=== PATIENT | female | born 1940 | race Caucasian/White ===

== ENCOUNTER 2020-07-25 11:52 | Outpatient (CLI) | payer MEDICARE, SELFPAY ==
--- NOTE | ~2020-07-25 | XR_ITS ---
EXAMINATION: XR chest 2V DATE: 07/25/2020 12:12 INDICATION: Cough. TECHNIQUE: Frontal and lateral views of the chest were obtained. COMPARISON: Chest 2 views 04/20/2016 FINDINGS: There is mild atelectasis at the lung bases. No pleural effusion or pneumothorax. The heart size is normal. IMPRESSION: 1. Mild atelectasis at the lung bases. Reviewed, dictated and finalized at location A.
--- NOTE | ~2020-07-25 | XR_ITS ---
XR ankle LT min 3V DATE: 07/25/2020 12:12 INDICATION: Left ankle pain, foot pain TECHNIQUE: 4 views COMPARISON: 07/25/2020 left ankle FINDINGS: Prominent plantar calcaneal enthesopathy. There is osteoarthritic change at the ankle joint and tarsal and tarsometatarsal joints. No fracture, dislocation, periosteal reaction or bone destruction. IMPRESSION: Plantar calcaneal enthesopathy Osteoarthritis Reviewed, dictated and finalized at location A.
== END 2020-07-25 11:53 | disposition home or self-care (01) ==
PROVIDERS: PCP Family Medicine; Visit Provider Family Medicine
DX: M77.32 Calcaneal spur, left foot (principal); M19.072 Primary osteoarthritis, left ankle and foot; R91.8 Other nonspecific abnormal finding of lung field
CPT/HCPCS: 71046; 73610

== ENCOUNTER 2022-10-09 14:10 | Outpatient (CLI) | payer MEDICARE, SELFPAY ==
--- NOTE | ~2022-10-09 | XR_ITS ---
Clinical Indication: Acute bronchitis PA and lateral views of the chest: Comparison: 07/25/2020 Findings: The lungs are clear, without evidence of focal consolidation or pleural effusion. Cardiome diastinal silhouette is within normal limits. Bones and soft tissues are unremarkable. Impression: Normal chest. Reviewed, dictated and finalized at location . Impression: Normal chest.
== END 2022-10-09 14:11 | disposition home or self-care (01) ==
PROVIDERS: PCP Family Medicine; Visit Provider Physician Assistant Medical
DX: J20.9 Acute bronchitis, unspecified (principal)
CPT/HCPCS: 71046

== ENCOUNTER 2023-01-02 12:08 | Outpatient (CLI) | payer MEDICARE, SELFPAY ==
--- NOTE | 2023-01-02 13:56 | WPDPFTINT ---
PFT Procedure Performed PFT Procedure Performed Spirometry with Pre/Post Bronchodilator Plethysmography (Lung Vol) Diffusing Cap (DLCO) Flow Vol Loop PFT Interpretation This is a pulmonary function test with pre and post-bronchodilator spirometry, plethysmography and diffusing capacity. The test was performed and results interpreted in accordance with the 2019 and 2005 ATS/ERS Task Force guidelines respectively using the Global Lung Function Initiative-2012 reference equations. Patient demonstrated good effort and cooperation. Reproducibility criteria were met. The quality of the pre bronchodilator spirometry maneuver was Grade A and post bronchodilator spirometry maneuver was Grade A. Findings: Spirometry: The contour the inspiratory and expiratory flow tracing are normal. The pre bronchodilator FVC is 2.25 L, 106% predicted. The pre bronchodilator FEV1 is 1.59 L, 98% predicted. The pre bronchodilator FEV1: FVC ratio 71%. The post bronchodilator FVC is 2.27 L, representing 1% increase. The post bronchodilator FEV1 is 1.68 L, representing a 6% increase. The post bronchodilator FEV1: FVC ratio is 74%. Plethysmography: The total lung capacity is 4.17 L, 94% predicted. The functional residual capacity is 1.93 L, 76% predicted. The residual volume is 1.86 L, 83% predicted. Diffusing capacity: The diffusing capacity unadjusted for hemoglobin and carboxyhemoglobin is 9.2, 53% predicted. The diffusing capacity adjusted for alveolar volume is 3.44, 81% predicted. Impression: The spirometry is normal without evidence of an obstructive abnormality. There is no significant improvement after inhaling a single dose of albuterol. The lung volumes are normal. The diffusing capacity unadjusted for hemoglobin and carboxyhemoglobin is moderately decreased and normalizes when adjusted for alveolar volume. There are no prior studies for comparison
== END 2023-01-02 12:09 | disposition home or self-care (01) ==
PROVIDERS: PCP Family Medicine; Visit Provider Physician Assistant Medical
DX: R05.3 Chronic cough (principal)
CPT/HCPCS: 94060; 94726; 94729

== ENCOUNTER 2023-10-08 15:16 | Outpatient (CLI) | payer MEDICARE, SELFPAY ==
--- NOTE | ~2023-10-08 | XR_ITS ---
Right Knee Technique: AP, lateral, and sunrise views were obtained. Clinical History: Osteoarthritis Findings: No fracture or dislocation is seen. There is lateral compartment narrowing. There is minima l tricompartmental osteophyte formation. Soft tissues are unremarkable. No joint effusion is seen. Impression: Moderate lateral compartment degenerative change. Minimal degenerative change in the remainder of the knee. Reviewed, dictated and finalized at location M. Impression: Moderate lateral compartment degenerative change. Minimal degenerative change in the remainder of the knee.
== END 2023-10-08 15:17 | disposition home or self-care (01) ==
LOC: ANHIMG 15:17
PROVIDERS: PCP Family Medicine; Visit Provider Orthopaedic Surgery
DX: M17.11 Unilateral primary osteoarthritis, right knee (principal)
CPT/HCPCS: 73564

== ENCOUNTER 2024-06-10 13:49 | Outpatient (CLI) | payer MEDICARE, SELFPAY ==
--- NOTE | ~2024-06-10 | XR_ITS ---
EXAMINATION: XR knee RT min 4V DATE: 06/10/2024 14:05 INDICATION: Unilateral primary osteoarthritis right knee. TECHNIQUE: 4 views of right knee including standing views were obtained. COMPARISON: Right knee radiographs 10/08/2023 FINDINGS: Alignment is normal. No fracture. There is severe osteoarthritis of lateral compartment and mild osteoarthritis of medial and patellofemoral compartments. There is a small knee joint effusion. IMPRESSION: 1. Severe right knee osteoarthritis. 2. Small right knee joint effusion. Reviewed, dictated and finalized at location A. MOWER MECHANIC
--- OUTSIDE RECORDS SUMMARY | 2024-06-10 14:35 | XMS_ITS | Clinical Summary ---
Author Organization [facility] Address [address] [place] [address]. [place], [place] [address] [place] [address] Care Team Providers Care Can Operator Name Role Phone Unavailable Primary Care Provider Unavailabl e Social History Tobacco Use Types Packs/Day Years Used Date Smoking Tobacco: Never Assessed Comments Unknown Sex and Gender Information Value Date Recorded Sex Assigned at Not on file Legal Sex Female 7:11 PM CDT Gender Identity Not on file Sexual Orientation Not on file Plan of Treatment Health Maintenance Due Date Last Done Comments DTaP, Tdap and Td Vaccines ( 1 - Tdap) 10/10/1958 Zoster Vaccines (1 of 2) 10/10/1989 Dexa Scan (General) 10/10/2004 Pneumococcal Vaccine: 65+ Ye ars (1 of 1 - PCV) 10/10/2004 RSV Immunization or 60+ Years (1 - 1-dose 75+ series) 10/10/2014 COVID-19 Vaccine (2023-2 5 season) 2024 Influenza Adult (#1) 2024 Meningococcal B Vaccine Aged Out No l onger eligible based on patient's age to complete this topic Meningococcal Vaccine Aged Out No bessy isamar eligible based on patient's age to complete this topic RSV Immunizations Under 20 Months Aged Out No longer eligible based on patient's age to complete this topic
--- OUTSIDE RECORDS SUMMARY | 2024-06-10 14:35 | XMS_ITS | Referral Summary ---
Author Organization [facility] [place] [address] Address [address] [place] [address] Care Team Providers Care Auto Glass Worker Name Role Phone Greg Smart MD Primary Care Provider [phone] Allergies No known active allergies Medications atorvastatin (LIPITOR) 20 mg tablet 02/06/2022 Active sertraline (ZOLOFT) 100 mg tablet Take 100 mg by mouth daily 03/16/2022 Active metoprolol XL (TOPROL-XL) 25 mg extended release tablet Take 25 mg by mouth daily 02/23/2022 Active spironolactone (ALDACTONE) 50 mg tablet 03/18/2022 Active meloxicam (MOBIC) 15 mg tablet 03/21/2022 Active Active Problems No known active problems Social History Tobacco Use Types Packs/Day Years Used Date Smoking Tobacco: Never Tobacco Cessation:Counseling Given: Not Answered Personal Safety Answer Date Recorded Getting School Help Needed Not on file 07/02 Comments Unknown Sex and Gender Information Value Date Recorded Sex Assigned at Not on file Legal Sex Female 9:01 AM COOLER MAN Gender Identity Not on file Sexual Orientation Not on file Last Filed Vital Signs Vital Sign Reading Time Taken Comments Blood Pressure - - Pulse - - Temperature - - Respiratory Rate - - Oxygen Saturation - - Inhaled Oxygen Concentration - - Weight 86.2 kg (190 lb) 03/21/2022 12:22 PM COOLER MAN Height 152.4 cm (5') 03/21/2022 12:22 PM COOLER MAN Body Mass Index 37.11 03/21/2022 12:22 PM COOLER MAN Plan of Treatment Not on file Insurance AETNA MEDICARE GOLD AETNA MEDICARE GOLD Care Teams Auto Glass Worker Relationship Specialty Start Date End Date Greg Smart MD PCP - General Family Medicine 08/06/18
--- OUTSIDE RECORDS SUMMARY | 2024-06-10 14:35 | XMS_ITS | Clinical Summary ---
Author Organization [facility] [place] [address] Address [address] [place] [address] Care Team Providers Care Offal Separator Name Role Phone Greg Smart MD Primary Care Provider [phone] Allergies No known active allergies Medications atorvastatin (LIPITOR) 20 mg tablet 02/06/2022 Active sertraline (ZOLOFT) 100 mg tablet Take 100 mg by mouth daily 03/16/2022 Active metoprolol XL (TOPROL-XL) 25 mg extended release tablet Take 25 mg by mouth daily 02/23/2022 Active spironolactone (ALDACTONE) 50 mg tablet 03/18/2022 Active meloxicam (MOBIC) 15 mg tablet 03/21/2022 Active Active Problems No known active problems Surgical History Surgery Date Site/Laterality Comments FOOT SURGERY CATARACT EXTRACTION N/A Medical History Medical History Date Comments Hypertension Gastric reflux Allergic rhinitis Urinary tract infection Family History Medical History Relation Name Comments Heart disease Father Arthritis Mother Hypertension Mother Relation Name Status Comments Father Mother Social History Tobacco Use Types Packs/Day Years Used Date Smoking Tobacco: Never Tobacco Cessation:Counseling Given: Not Answered Personal Safety Answer Date Recorded Getting School Help Needed Not on file 07/02 Comments Unknown Sex and Gender Information Value Date Recorded Sex Assigned at Not on file Legal Sex Female 9:01 AM REAL ESTATE INVESTMENT ANALYST Gender Identity Not on file Sexual Orientation Not on file Obstetrics History Last Filed Vital Signs Vital Sign Reading Time Taken Comments Blood Pressure - - Pulse - - Temperature - - Respiratory Rate - - Oxygen Saturation - - Inhaled Oxygen Concentration - - Weight 86.2 kg (190 lb) 03/21/2022 12:22 PM REAL ESTATE INVESTMENT ANALYST Height 152.4 cm (5') 03/21/2022 12:22 PM REAL ESTATE INVESTMENT ANALYST Body Mass Index 37.11 03/21/2022 12:22 PM REAL ESTATE INVESTMENT ANALYST Plan of Treatment Health Maintenance Due Date Last Done Comments Depression Screening 1940 Fall Risk Assessment 1940 Osteoporosis Screening-Bone Density Scan 1940 DTaP/Tdap/Td Vaccine (1 - Tdap) 10/10/1950 Hepatitis B Screening 10/10/1957 Zoster Vaccine (1 of 2) 10/10/1989 Well Visit 65+ 10/10/2004 Pneumococcal vaccine 65+ (2 of 2 - PPSV23 or PCV20) 01/09/2023 01/09/2022 Covid-19 Vaccine (5 - 2023-2 5 season) 2024 10/02/2021, 05/11/2021, 08/02/2020, Additional history exists Influenza Vaccine (#1) 2024 , 01/27/2020, 03/05/2019, Additional history exists Insurance AETNA MEDICARE GOLD AETNA MEDICARE GOLD Care Teams Offal Separator Relationship Specialty Start Date End Date Greg Smart MD PCP - General Family Medicine 08/06/18
== END 2024-06-10 13:50 | disposition home or self-care (01) ==
PROVIDERS: PCP Family Medicine; Visit Provider Orthopaedic Surgery
DX: M17.11 Unilateral primary osteoarthritis, right knee (principal); M25.461 Effusion, right knee
CPT/HCPCS: 73564

== ENCOUNTER 2024-07-16 08:16 | Outpatient (CLI) | payer MEDICARE, SELFPAY ==
--- NOTE | ~2024-07-16 | NM_ITS ---
EXAMINATION: NM gracia stress w perfusion DATE: 07/16/2024 10:08 INDICATION: Abnormal electrocardiogram. First degree AV block. Encounter for preprocedural cardiovasc ular exam. TECHNIQUE: Rest images were obtained following intravenous administration of 10.5 mCi Tc99m tetrofosm in (Myoview). The patient was infused intravenously with Lexiscan (regadenoson). Then, 33.5 mCi Tc99m tetrofosmin (Myoview) was administered intravenously, and supine and prone stress images were obtain ed. Data was reconstructed into short axis and horizontal and vertical long axis SPECT images. Gated SPECT images were also obtained. COMPARISON: None. FINDINGS: There is no definite reversible or fixed perfusion abnormality to suggest ischemia or infar ction. There is no segmental wall motion abnormality. Left ventricular ejection fraction measures > 70%. IMPRESSION: 1. No definite ischemia or infarct. 2. Normal left ventricular ejection fraction measuring >70%. Reviewed, dictated and finalized at location [] [facility]
--- NOTE | 2024-07-16 08:29 | EST_ITS ---
Patient Info Name: Carmenza Fischer Age: 83 years : 1940 Gender: Female Ht: 60 in Wt: 190 lbs BSA: 1.96 m2 HR: 68 bpm BP: 143 / 62 mmHg Exam Date: 07/16/2024 9:09 AM Exam Location: Echo Lab Patient Status: Outpatient Admit Date: 07/16/2024 Staff Ordering Physician: Bart Peña DO Attending Provider: Bart Peña DO Exercise Technologist: Sanjuanita Schultz RDCS Exercise Physician: Bart Peña DO Exam Type: CA stress gracia w NM Study Info A regadenoson stress test was performed. Summary 1. 1. Negative lexiscan stress test for ischemic ST changes by ECG criteria. 2. 2. Baseline hypertension. 3. 3. Nuclear scan to follow and will be reported separately. Please correlate with it. 4. 4. Patient informed of the above results. Protocol: Lexiscan Stress ECG Details Stage: REST Duration (min): 0 min : 55 sec HR (bpm): 67 SBP (mmHg): 143 DBP (mmHg): 62 Stage: REST Duration (min): 7 min : 24 sec HR (bpm): 66 SBP (mmHg): 143 DBP (mmHg): 62 Stage: STAGE 1 Duration (min): 0 min : 59 sec HR (bpm): 88 SBP (mmHg): 161 DBP (mmHg): 79 Stage: RECOVERY Duration (min): 1 min : 0 sec HR (bpm): 97 SBP (mmHg): 161 DBP (mmHg): 79 Stage: RECOVERY Duration (min): 2 min : 0 sec HR (bpm): 98 SBP (mmHg): 161 DBP (mmHg): 79 Stage: RECOVERY Duration (min): 3 min : 0 sec HR (bpm): 92 SBP (mmHg): 129 DBP (mmHg): 62 Stage: RECOVERY Duration (min): 3 min : 12 sec HR (bpm): 93 SBP (mmHg): 129 DBP (mmHg): 62 Rest HR: 66 bpm Peak HR: 100 bpm Rest Sys BP: 143 mmHg Peak Sys BP: 161 mmHg Max Pred HR: 136 bpm % Max Pred HR: 74 % Target HR: 116 bpm Max RPP: 16,100 bpm*mmHg Termination Reason: Completed protocol Cardiac Symptoms: Shortness of breath Total Time: 1 min : 0 sec Rest Aguilar BP: 62 mmHg Peak Aguilar BP: 79 mmHg Total Dose: 0.4 mg Resting ECG Sinus rhythm. Stress ECG No ST changes. Arrhythmias None. Report Signatures
--- OUTSIDE RECORDS SUMMARY | 2024-07-16 08:36 | XMS_ITS | Clinical Summary ---
Author Organization [facility] [place] [address] Address [address] [place] [address] Care Team Providers Care Food Product Inspector Name Role Phone Greg Smart MD Primary Care Provider [phone] Allergies No known active allergies Medications atorvastatin [...] on file Legal Sex Female 9:01 AM REFINING EQUIPMENT OPERATOR Gender Identity Not on file Sexual Orientation Not on file Obstetrics History Last Filed Vital Signs Vital Sign Reading Time Taken Comments Blood Pressure - - Pulse - - Temperature - - Respiratory Rate - - Oxygen Saturation - - Inhaled Oxygen Concentration - - Weight 86.2 kg (190 lb) 03/21/2022 12:22 PM REFINING EQUIPMENT OPERATOR Height 152.4 cm (5') 03/21/2022 12:22 PM REFINING EQUIPMENT OPERATOR Body Mass Index 37.11 03/21/2022 12:22 PM REFINING EQUIPMENT OPERATOR Plan of Treatment Health Maintenance Due Date Last Done Comments Depression Screening 1940 Fall Risk Assessment 1940 Osteoporosis Screening-Bone Density Scan 1940 DTaP/Tdap/Td Vaccine (1 - Tdap) 10/10/1950 Hepatitis B Screening 10/10/1957 Zoster Vaccine (1 of 2) 10/10/1989 Well Visit 65+ 10/10/2004 Pneumococcal vaccine 65+ (2 of 2 - PPSV23) 01/09/2023 01/09/2022 Covid-19 Vaccine (5 - 2023-2 5 season) 2024 10/02/2021, 05/11/2021, 08/02/2020, Additional history exists Influenza Vaccine (#1) 2024 , 01/27/2020, 03/05/2019, Additional history exists Insurance AETNA MEDICARE GOLD TNA MEDICARE GOLD Care Teams Food Product Inspector Relationship Specialty Start Date End Date Greg Smart MD PCP - General Family Medicine 08/06/18
--- OUTSIDE RECORDS SUMMARY | 2024-07-16 08:36 | XMS_ITS | Referral Summary ---
Author Organization [facility] [place] [address] Address [address] [place] [address] Care Team Providers Care Chief Legal Officer Name Role Phone Greg Smart MD Primary Care Provider [phone] Allergies No known active allergies Medications atorvastatin [...] on file Legal Sex Female 9:01 AM ELECTRICAL HARDWARE ENGINEER Gender Identity Not on file Sexual Orientation Not on file Last Filed Vital Signs Vital Sign Reading Time Taken Comments Blood Pressure - - Pulse - - Temperature - - Respiratory Rate - - Oxygen Saturation - - Inhaled Oxygen Concentration - - Weight 86.2 kg (190 lb) 03/21/2022 12:22 PM ELECTRICAL HARDWARE ENGINEER Height 152.4 cm (5') 03/21/2022 12:22 PM ELECTRICAL HARDWARE ENGINEER Body Mass Index 37.11 03/21/2022 12:22 PM ELECTRICAL HARDWARE ENGINEER Plan of Treatment Not on file Insurance AETNA MEDICARE GOLD AETNA MEDICARE GOLD Care Teams Chief Legal Officer Relationship Specialty Start Date End Date Greg Smart MD PCP - General Family Medicine 08/06/18
--- OUTSIDE RECORDS SUMMARY | 2024-07-16 08:36 | XMS_ITS | Clinical Summary ---
Author Organization [facility] Address [address] [place] [address] Care Team Providers Care Secretary To Board Of Commissioners Name Role Phone Unavailable Primary Care Provider [...]
== END 2024-07-16 08:17 | disposition home or self-care (01) ==
PROVIDERS: PCP Family Medicine; Visit Provider Internal Medicine Cardiovascular Disease
DX: Z01.810 Encounter for preprocedural cardiovascular examination (principal); I10 Essential (primary) hypertension
CPT/HCPCS: 78452; 93017; A9502; J2785

== ENCOUNTER 2024-08-18 13:57 | Outpatient (CLI) | payer MEDICARE, SELFPAY ==
--- NOTE | ~2024-08-18 | XR_ITS ---
EXAM/ PROCEDURE: XR knee RT min 4V - 08/18/2024 14:10 CDT HISTORY: 83 years old Female with M17.11 - Unilateral primary osteoarthritis, right knee COMPARISON: 06/10/2024 TECHNIQUE: 5 view(s) FINDINGS/ IMPRESSION: There are no fractures or dislocations.Joint space narrowing, subchondral sclerosis, subchondral cyst formation and osteophyte formation, compatible with osteoarthritis. Severe osteoarthritis of the lat eral compartment, and mild to moderate osteoarthritis of the patellofemoral and medial compartments. Reviewed, dictated and finalized at location A.
--- OUTSIDE RECORDS SUMMARY | 2024-08-18 15:29 | XMS_ITS | Clinical Summary ---
Author Organization [facility] Address [address] [place] [address] Care Team Providers Care Farm Management Supervisor Name Role Phone Unavailable Primary Care Provider [...] - 1-dose 75+ series) 10/10/2014 COVID-19 Vaccine ( - 2023-2 5 season) 2024 Meningococcal B Vaccine Aged Out No l onger eligible based on patient's age to complete this topic Meningococcal Vaccine Aged Out No bessy isamar eligible based on patient's age to complete this topic RSV Immunizations Under 20 Months Aged Out No longer eligible based on patient's age to complete this topic
--- OUTSIDE RECORDS SUMMARY | 2024-08-18 15:29 | XMS_ITS | Referral Summary ---
Author Organization [facility] [place] [address] Address [address] [place] [address] Care Team Providers Care Aligner Name Role Phone Greg Smart MD Primary Care Provider [phone] Allergies No known active allergies Medications atorvastatin [...] on file Legal Sex Female 9:01 AM SHIP PILOT DISPATCHER Gender Identity Not on file Sexual Orientation Not on file Last Filed Vital Signs Vital Sign Reading Time Taken Comments Blood Pressure - - Pulse - - Temperature - - Respiratory Rate - - Oxygen Saturation - - Inhaled Oxygen Concentration - - Weight 86.2 kg (190 lb) 03/21/2022 12:22 PM SHIP PILOT DISPATCHER Height 152.4 cm (5') 03/21/2022 12:22 PM SHIP PILOT DISPATCHER Body Mass Index 37.11 03/21/2022 12:22 PM SHIP PILOT DISPATCHER Plan of Treatment Not on file Insurance AETNA MEDICARE GOLD AETNA MEDICARE GOLD Care Teams Aligner Relationship Specialty Start Date End Date Greg Smart MD PCP - General Family Medicine 08/06/18
--- OUTSIDE RECORDS SUMMARY | 2024-08-18 15:29 | XMS_ITS | Clinical Summary ---
Author Organization [facility] [place] [address] Address [address] [place] [address] Care Team Providers Care Water Service Supervisor Name Role Phone Greg Smart MD Primary Care Provider [phone] Allergies No known active allergies Medications atorvastatin [...] on file Legal Sex Female 9:01 AM INDUSTRY OPERATIONS INVESTIGATOR Gender Identity Not on file Sexual Orientation Not on file Obstetrics History Last Filed Vital Signs Vital Sign Reading Time Taken Comments Blood Pressure - - Pulse - - Temperature - - Respiratory Rate - - Oxygen Saturation - - Inhaled Oxygen Concentration - - Weight 86.2 kg (190 lb) 03/21/2022 12:22 PM INDUSTRY OPERATIONS INVESTIGATOR Height 152.4 cm (5') 03/21/2022 12:22 PM INDUSTRY OPERATIONS INVESTIGATOR Body Mass Index 37.11 03/21/2022 12:22 PM INDUSTRY OPERATIONS INVESTIGATOR Plan of Treatment Health Maintenance Due Date [...] 05/11/2021, 08/02/2020, Additional history exists Influenza Vaccine (Season Ended) 2025 02/22/2021, 01/27/2020, 03/05/2019, Additional history exists Insurance AETNA MEDICARE GOLD TNA MEDICARE GOLD Care Teams Water Service Supervisor Relationship Specialty Start Date End Date Greg Smart MD PCP - General Family Medicine 08/06/18
== END 2024-08-18 13:58 | disposition home or self-care (01) ==
PROVIDERS: PCP Family Medicine; Visit Provider Orthopaedic Surgery
DX: M17.11 Unilateral primary osteoarthritis, right knee (principal)
CPT/HCPCS: 73564

== ENCOUNTER 2024-11-25 14:07 | Outpatient (CLI) | payer MEDICARE, SELFPAY ==
--- OUTSIDE RECORDS SUMMARY | 2024-11-25 14:19 | XMS_ITS | Clinical Summary ---
Author Organization [facility] Address [address] [place] [id number] Care Team Providers Care Collar Pointer Name Role Phone Unavailable Primary Care Provider [...] Td Vaccines ( 1 - Tdap) 10/10/1958 Pneumococcal Vaccine: 50+ Ye ars (1 of 1 - PCV) 10/10/1989 Zoster Vaccines (1 of 2) 10/10/1989 RSV Immunization or 60+ Years (1 - [...]
--- OUTSIDE RECORDS SUMMARY | 2024-11-25 14:19 | XMS_ITS | Referral Summary ---
Author Organization [facility] [place] [address] Address [address] [place] [address] Care Team Providers Care Awake Overnight Counselor Name Role Phone Greg Smart MD Primary Care Provider [phone] Allergies No known active allergies Medications atorvastatin [...] on file Legal Sex Female 9:01 AM AGRICULTURAL SYSTEMS SPECIALIST Gender Identity Not on file Sexual Orientation Not on file Last Filed Vital Signs Vital Sign Reading Time Taken Comments Blood Pressure - - Pulse - - Temperature - - Respiratory Rate - - Oxygen Saturation - - Inhaled Oxygen Concentration - - Weight 86.2 kg (190 lb) 03/21/2022 12:22 PM AGRICULTURAL SYSTEMS SPECIALIST Height 152.4 cm (5') 03/21/2022 12:22 PM AGRICULTURAL SYSTEMS SPECIALIST Body Mass Index 37.11 03/21/2022 12:22 PM AGRICULTURAL SYSTEMS SPECIALIST Plan of Treatment Not on file Insurance AETNA MEDICARE GOLD AETNA MEDICARE GOLD Care Teams Awake Overnight Counselor Relationship Specialty Start Date End Date Greg Smart MD PCP - General Family Medicine 08/06/18
--- OUTSIDE RECORDS SUMMARY | 2024-11-25 14:19 | XMS_ITS | Clinical Summary ---
Author Organization [facility] [place] [address] Address [address] [place] [address] Care Team Providers Care Wardrobe Supervisor Name Role Phone Greg Smart MD Primary Care Provider [phone] Allergies No known active allergies Medications atorvastatin [...] on file Legal Sex Female 9:01 AM DECKHAND SPONGE BOAT Gender Identity Not on file Sexual Orientation Not on file Obstetrics History Last Filed Vital Signs Vital Sign Reading Time Taken Comments Blood Pressure - - Pulse - - Temperature - - Respiratory Rate - - Oxygen Saturation - - Inhaled Oxygen Concentration - - Weight 86.2 kg (190 lb) 03/21/2022 12:22 PM DECKHAND SPONGE BOAT Height 152.4 cm (5') 03/21/2022 12:22 PM DECKHAND SPONGE BOAT Body Mass Index 37.11 03/21/2022 12:22 PM DECKHAND SPONGE BOAT Plan of Treatment Health Maintenance Due Date [...] 08/02/2020, Additional history exists Influenza Vaccine (#1) 2025 , 01/27/2020, 03/05/2019, Additional history exists Insurance AETNA MEDICARE GOLD TNA MEDICARE GOLD Care Teams Wardrobe Supervisor Relationship Specialty Start Date End Date Greg Smart MD PCP - General Family Medicine 08/06/18
[2024-11-25 15:51] LABS: Hematocrit 36.4 % (37.0-47.0); Hemoglobin 11.7 g/dL (12.0-15.0); Immature Granulocyte Percent A 0.6 % (0-0.5); Lymphocytes Absolute Auto 1.98 K/mm3 (0.9-3.2); Mean Corpuscular HGB Conc 32.1 g/dl (32-36); Mean Corpuscular Hemoglobin 31.0 pg (26-34); Mean Corpuscular Volume 96.6 fl (80-100); Nucleated Red Blood Cells Absolute Auto 0.000 K/mm3 (0.0-0.012); Nucleated Red Blood Cells Perc 0.0 % (0.0-0.2); Platelet Count Result 232 k/mm3 (150-375); Red Blood Count 3.77 M/mm3 (4.2-5.4); White Blood Count 7.3 K/mm3 (4.5-10.0)
[2024-11-25 16:03] LABS: INR 0.9; Prothrombin Time 12.5 Seconds (11.1-14.7)
[2024-11-25 16:04] LABS: Partial Thromboplastin Time 28.2 Seconds (22.3-36.8)
[2024-11-25 16:14] LABS: Albumin Level 4.0 g/dL (3.5-5.1)
[2024-11-25 16:18] LABS: Anion Gap 7 mmol/L (4-12); Blood Urea Nitrogen 24 mg/dL (7-17); Calcium 9.2 mg/dL (8.4-10.2); Carbon Dioxide 24 mmol/L (22-30); Chloride 108 mmol/L (98-107); Estimated Glomerular Filt Rate 53; Glucose 95 mg/dL (65-110); Potassium 3.9 mmol/L (3.4-5.0); Sodium 139 mmol/L (137-145)
[2024-11-25 17:06] LABS: MRSA (PCR) NOT DETECTED (NOT DETECTE)
[2024-11-25 17:43] LABS: Hemoglobin A1C 6.0 % (<5.7)
== END 2024-11-25 14:08 | disposition home or self-care (01) ==
LOC: ANHSURGERY 14:13
PROVIDERS: Anesthesiology; PCP Family Medicine; Visit Provider Orthopaedic Surgery
DX: Z01.818 Encounter for other preprocedural examination (principal); M17.11 Unilateral primary osteoarthritis, right knee; N28.9 Disorder of kidney and ureter, unspecified
CPT/HCPCS: 36415; 80048; 80307; 82040; 83036; 85025; 85610; 85730; 87641

== ENCOUNTER 2024-12-10 00:35 | Day surgery (SDC) | payer MEDICARE, SELFPAY ==
[2024-11-25 14:24] VITALS: BP 147/58; PULSE 78; RESP 16; TEMP 36.9; O2SAT 95; BMI 39.2
--- NOTE | 2024-11-25 14:57 | PC.NURSE ---
Report to the Outpatient Waiting Room, entrance under the green pavilion located off [facility], at time ___10:30AM____ on date __12/10/24____. Planned Procedure Time: ___12:30PM .? Time changes happen often and if your time is changed the preop area will call you the afternoon before. - You and your visitor will be asked to self-screen and do not enter if you have any COVID symptoms. Please call surgeon if you need to reschedule. - A mask is optional within the hospital at this time. Patients may have clear liquids (water, carbonated beverages, clear teas, apple juice) until 3 hours prior to surgery (9:30AM) with a maximum of 20 ounces. - No food from midnight until time of surgery and no smoking, or chewing tobacco (or any form of nicotine). No chewing gum, candy or mints. Take only the following medications with a SIP of water on the morning of surgery: ___NONE DO NOT STOP ANY OF YOUR OTHER PRESCRIPTION MEDICATIONS PRIOR TO SURGERY EXCEPT THE FOLLOWING Medications to discontinue per physician ____HOLD IBUPROFEN(ALL NSAIDS) AND VITAMINS/SUPPLEMENTS 7 DAYS PRE-OP PER DR BECKMAN Date to take last dose 12/02/24 Please no make-up, nail romanian, hairspray, perfume, deodorant, or body powder the day of surgery.? No jewelry (including any body piercings) or valuables the day of surgery, leave them at home.? Please take a shower or bath the night before, or the morning of, surgery with an antibacterial soap.? Wear comfortable, loose fitting clothing.? - Jewelry must be removed prior to entering the operating room.? Rings and piercings that are not removed may be cut off. - The hospital will not accept responsibility for valuables.? - Please leave all valuables, including medications, at home the day of surgery. If you are going home after surgery, a licensed driver supervisor must drive you home.? - NO public transportation without another adult if you receive anesthesia. - We recommend that an adult stay with you for 24 hours following discharge. - We also recommend that you do not drive, make important decision, drink alcoholic beverages, or take any drugs that were not prescribed by your health care provider for at least 24 hours after your discharge time. Follow any additional instructions given to you from your surgeon. Telephone instructions given to PATIENT and asked if any additional questions and then verbalized understanding. Patient advised to call surgeon office or pre surgery nurse liaison [phone] if any additional questions.
[2024-12-10] VITALS (15 sets, daily range): BP systolic 115–166; BP diastolic 52–68; PULSE 77–97; RESP 14–19; TEMP 36.1–36.7; O2SAT 96–100
--- NOTE | ~2024-12-10 | XR_ITS ---
EXAMINATION: [id number] DATE: 12/10/2024 15:57 CDT INDICATION: Right knee arthroplasty TECHNIQUE: 2 views right knee FINDINGS: There is a right total knee arthroplasty in expected position. Subcutaneous gas with fluid and air in the joint are consistent with recent surgery. No evidence of periprosthetic fracture. IMPRESSION: 1. Recent right total knee arthroplasty. Reviewed, dictated and finalized at location B.
--- OUTSIDE RECORDS SUMMARY | 2024-12-10 00:37 | XMS_ITS | Referral Summary ---
Author Organization [facility] [address] Address [address] [place] [address] Care Team Providers Care Garage Attendant Name Role Phone Greg Smart MD Primary Care Provider [phone] Allergies No known active allergies Medications atorvastatin [...] on file Legal Sex Female 9:01 AM PRECISION CROP MANAGER Gender Identity Not on file Sexual Orientation Not on file Last Filed Vital Signs Vital Sign Reading Time Taken Comments Blood Pressure - - Pulse - - Temperature - - Respiratory Rate - - Oxygen Saturation - - Inhaled Oxygen Concentration - - Weight 86.2 kg (190 lb) 03/21/2022 12:22 PM PRECISION CROP MANAGER Height 152.4 cm (5') 03/21/2022 12:22 PM PRECISION CROP MANAGER Body Mass Index 37.11 03/21/2022 12:22 PM PRECISION CROP MANAGER Plan of Treatment Not on file Insurance [employer] MEDICARE GOLD AET[employer] MEDICARE GOLD Care Teams Garage Attendant Relationship Specialty Start Date End Date Greg Smart MD PCP - General Family Medicine 08/06/18
--- OUTSIDE RECORDS SUMMARY | 2024-12-10 00:37 | XMS_ITS | Clinical Summary ---
Author Organization [facility] Address [address] [place] [id number] Care Team Providers Care Donor Specialist Name Role Phone Unavailable Primary Care Provider [...]
--- OUTSIDE RECORDS SUMMARY | 2024-12-10 00:37 | XMS_ITS | Clinical Summary ---
Author Organization [facility] [place] [facility] [address] Address [address] [place] [address] Care Team Providers Care Director Of Adult Epilepsy Name Role Phone Greg Smart MD Primary Care Provider [phone] Allergies No known active allergies Medications atorvastatin [...] on file Legal Sex Female 9:01 AM DISASTER RECOVERY COORDINATOR Gender Identity Not on file Sexual Orientation Not on file Obstetrics History Last Filed Vital Signs Vital Sign Reading Time Taken Comments Blood Pressure - - Pulse - - Temperature - - Respiratory Rate - - Oxygen Saturation - - Inhaled Oxygen Concentration - - Weight 86.2 kg (190 lb) 03/21/2022 12:22 PM DISASTER RECOVERY COORDINATOR Height 152.4 cm (5') 03/21/2022 12:22 PM DISASTER RECOVERY COORDINATOR Body Mass Index 37.11 03/21/2022 12:22 PM DISASTER RECOVERY COORDINATOR Plan of Treatment Health Maintenance Due Date [...] MEDICARE GOLD TNA MEDICARE GOLD Care Teams Director Of Adult Epilepsy Relationship Specialty Start Date End Date Greg Smart MD PCP - General Family Medicine 08/06/18
--- NOTE | 2024-12-10 07:14 | WPDHPUPDATE1 ---
History and Physical Update Update Date/Time: 12/10/24 07:14 History and Physical has been reviewed, including an updated exam of the patient. There are NO changes in the patient's condition. Risks, benefits, and alternatives have been discussed and questions answered. Patient agrees to proceed with procedure.
--- NOTE | 2024-12-10 07:15 | WPDHPUPDATE1 ---
History and Physical Update Update Date/Time: 12/10/24 07:15 History and Physical has been reviewed, including an updated exam of the patient. There are NO changes in the patient's condition. Risks, benefits, and alternatives have been discussed and questions answered. Patient agrees to proceed with procedure.
[2024-12-10] MEDS: ACETAMINOPHEN 500 MG TABLET 1000 MG PO (10:45)
[2024-12-10] MEDS: TRANEXAMIC ACID 1,000MG/ISO100 1,000 MG/100 ML BAG 200 MG IVPB (10:50)
--- NOTE | 2024-12-10 12:38 | WPDANESEPPF ---
Anes - Initial Pre Proc Eval Procedure: Operation Date: 12/10/24 12:30 Proposed Procedures p Right Total Knee Arthroplasty - Gunnar Adam MD Date/Time: 12/10/24 12:38 Surgeon: Gunnar Adam MD Pre Op Diagnosis: Prim O A Rt Knee Patient Data Age: 84 Gender: F Height: 1.51 m Weight: 87.25 kg Last Vital Signs Temp 36.2 C L 12/10/24 10:43 Pulse 97 12/10/24 10:43 Resp 18 12/10/24 10:43 BP 166/68 H 12/10/24 10:43 Pulse Ox 98 12/10/24 10:43 O2 Del Method Room Air 12/10/24 10:43 Allergies Allergy/AdvReac Type Severity Reaction Status Date / Time No Known Allergies Allergy Verified 12/10/24 10:57 Home Medications ?Medication ?Instructions ?Recorded ?Confirmed ?Type cholecalciferol (vitamin D3) 75 75 mcg PO DAILY 01/13/20 12/10/24 History mcg (3,000 unit) tablet omega-3 fatty acids 500 mg capsule 500 mg PO DAILY 01/07/24 12/10/24 History ibuprofen 200 mg tablet 400 mg PO Q6-8H PRN pain 07/09/24 12/10/24 History minoxidil 2.5 mg tablet 1.25 mg PO DAILY 07/09/24 12/10/24 History metoprolol succinate 25 mg See Rx Instructions .Route 08/25/24 12/10/24 Rx tablet,extended release 24 hr .COMPLEX #90 tabs atorvastatin 20 mg tablet See Rx Instructions .Route 11/24/24 12/10/24 Rx .COMPLEX #90 tabs omeprazole 20 mg capsule,delayed See Rx Instructions .Route 11/24/24 12/10/24 Rx release .COMPLEX #90 caps Laboratory Tests 12/10/24 10:43 Blood Type O Positive Antibody Screen Pending Patient hx anesthesia problems: none Family hx anesthesia problems: none Results Review: All pre-operative results and documents have been reviewed as part of the pre-operative evaluation. [facility] Past Medical History Medical History Major depressive disorder NUNU (acute kidney injury) Diarrhea Right knee pain Nondisplaced fracture of right radial styloid process, subsequent encounter for closed fracture with routine healing Diverticulitis of large intestine without perforation or abscess Pes planovalgus, acquired Left ankle pain Cough Anemia Atrial ectopic beat CAMARA (dyspnea on exertion) Essential hypertension Irregular heart rhythm Low kidney function Mixed hyperlipidemia Other chronic pain Pain of right thumb Pre-diabetes Primary biliary cirrhosis Right wrist pain Trigger ring finger of right hand Surgical History Surgical History History of cataract extraction Presence of left artificial knee joint (~11/07/18) Family History Family History Mother Hypertension Family history of cardiovascular disease, Onset Age: 90 Family history of congestive heart failure Father Family history of congestive heart failure, Onset Age: 59 Acute myocardial infarction Sibling No problems noted. Other Family history of arthritis Family history of malignant neoplasm of ovary Family history of osteoarthritis Social History Social History Smoking status: Never smoker Second hand tobacco smoke exposure: No Alcohol intake: current Drinks per week: 3 Substance use: never Substance use type: does not use Do You Feel Safe in your Home?: Yes Lack of Transportation: YES Lack of Food: Never True Current Housing: I Have Housing Concerned About Future Housing: No Difficulty Paying Gas/Electric Bills: No Difficulty Paying for Meds: No Currently Unemployed: No Education: High School Diploma/GED Difficulty w/ Childcare or Family Care: No Living arrangements: alone Occupation/Education: retired Gender identity (if verbalized by the patient): Female Spiritual care concerns: No Anes - Eval Final PreProcedure Day of Procedure 12/10/24 12:38 Patient weight: obese Heart: regular rate and rhythm Lungs: clear to auscultation Airway: Mallampati scale class II Neurological: alert and oriented Last oral intake: >/= 8 hours ASA classification: III Emergent: no Anesthetic plan: proceed Anesthesia type and monitoring: general LMA and standard monitoring Results Review: All pre-operative results and documents have been reviewed as part of the pre-operative evaluation. Informed Consent: The patient's anesthetic plan and its attendant risks and benefits were discussed with the patient/family/POA. Questions were solicited and answers provided to the satisfaction of the patient/family/POA.
[2024-12-10] MEDS: ceFAZolin 2 GM in SODIUM CHLORIDE 0.9% IV 50 ML 100 ML IVPB (13:07)
--- NOTE | 2024-12-10 13:10 | W.PM.PROC2 ---
Procedure Note - Detailed Date of Procedure 12/10/24 Pre-op Diagnosis Right knee degenerative arthritis. Post-op Diagnosis Same Procedure Performed Calipered, kinematically aligned total knee replacement right knee. Surgeon Gunnar Adam MD Anesthesia General Findings According to the calipered kinematic alignment principles, the knee was balanced by the following verification checks incorporating 6 caliper measurements, using an insert goniometer to select the insert thickness, and adjusting the tibial resection following the kinematic alignment algorithm (see figure 160.10 published in [employer] chapter on kinematic alignment total knee arthroplasty.) The steps verified the femoral and tibial components were kinematically aligned coincident to the patient's pre arthritic joint lines, which closely restored the [place] tibial compartment forces and ligament laxities without ligament release. The Medacta ActivNetworksK SperiKA knee, designed specifically for kinematic alignment, fit optimally. PCL was released to optimize flexion balance. The record of verification checks were documented and scanned into the chart. Distal Femoral Resection: Distal lateral 6 mm(cartilage worn), Distal medial 8 mm Target thickness of 8mm Unworn, 6mm Worn (No Cartilage). Posterior Femoral Resection: Posterior lateral 5 mm(cartilage worn), Posterior medial 7 mm. Target thickness of 7mm Unworn, 5mm Worn (No Cartilage). Description of Procedure General anesthesia was administered. A well-padded tourniquet was placed high on the thigh. The limb was prepped and draped in the usual sterile fashion. The limb was exsanguinated and the tourniquet inflated to 300 mmHgduring exposure and cementation. A longitudinal incision was created over the midline of the knee. Sharp dissection was taken through subcutaneous tissues. Electrocautery was used for hemostasis. A trivector approach to the knee joint was performed. The ACL, anterior horns of the menisci, and fat pad were excised, and a subperiosteal dissection was carried along the posterior medial border of the tibia. Starting midway between the top of the notch in the anterior femoral cortex, I drilled a 9 mm diameter hole parallel to the anterior cortex to minimize flexion of the femoral component and promote patella tracking. I verified the existence of a 5-10 mm bone bridge between the posterior aspect of the hole and the anterior limit of the intercondylar notch. An intraosseous positioning rosa was inserted 10 cm into the femur perpendicular to the distal joint line and parallel to the anterior cortex. I used a distal femoral referencing guide that compensated 2 mm when the cartilage was worn on the distal medial femoral condyle, and 2 mm when the cartilage was worn on the distal lateral femoral condyle. The basis for setting the distal and posterior femoral resection guide is knowing that the varus and valgus grade II to IV Kellegren-Rey osteoarthritic knees have negligible bone wear at 0? and 90? and that the mean full-thickness cartilage wear approximates 2 mm. I measured the thickness of distal femoral resections with a caliper to +/- 0.5 mm. The thickness of each resection was adjusted to match the thickness of the respective condyle of the femoral component within 0.5 mm of target after compensating for cartilage wear and kerf. When the distal resection was 1-2 mm too thin, a recut guide was used to adjust the cut. When the distal resection was too thick, a 1 or 2 mm thick washer was fixed to the back of the 4-in-1 chamfer block to polina a corrective gap between the femoral component and distal femur. I set posterior femoral referencing guide at 0? orientation to position the pin holes for the 4 in 1 chamfer block. The daniel wing measured the width of the distal femoral resection and selected the size of the 4 in 1 chamfer block and femoral component. The AP sizer confirmed the size. I measured the thickness of the posterior femoral resections with a caliper before making the anterior and chamfer cuts. I adjusted the thicknesses of each resection to match the thickness of the respective condyle of the femoral component within +/-0.5 mm after compensating for cartilage wear and curve. When a posterior resection femoral resection was 1-2 mm too thick or thin a corrective correction was made by shifting or rotating the 4 in 1 chamfer block as needed. The chamfer block was secured in the correct position with compression screws. The anterior and chamfer femoral resections were made. These caliper measurements and corrections verified that the femoral component was set coincident with the patient's pre-arthritic distal and posterior femoral joint lines. I removed all the medial and lateral femoral and tibial osteophytes to restore the pre arthritic length of the medial and lateral collateral ligaments. I shanel AP lines along the major axis of the lateral tibial plateau in between the tibial spines which identified the flexion extension plane of the knee. A conventional extramedullary tibial resection guide was applied to the ankle. An daniel wing was placed medially in the saw slot. The varus valgus angle of the tibial resection guide was adjusted until the guide paralleled the proximal tibial articular surface after compensating for cartilage and bone wear. The slope of flexion extension angle of the tibial resection guide was adjusted until the daniel wing paralleled the slope of the medial tibia after compensating for wear. The AP axis of the tibial resection guide was adjusted parallel to the two lines. The proximal tibia was resected, partially releasing the insertion of the posterior cruciate ligament. The thickness of the medial and lateral lateral tibial condyle was measured at the base of the tibial spines. I visually verified the slope of the medial border of the resection was parallel to the patient's pre arthritic slope after compensating for cartilage and bone wear. I removed the remnants of the posterior horns of the menisci and posterior osteophytes and cauterized the inferior lateral genicular vessels. The Aquamantys bipolar device was also used to for additional hemostasis. When the knee had a preoperative flexion contracture of 20? or more I teased the capsule off the posterior femur with a curved 3 quarter-inch osteotome. I administered the posterior femoral periosteal injection by delivering 10 cc using a 20 gauge spinal needle at the most medial and 10 cc at the most lateral femoral spur surface which reduced the risk of injury to the posterior neurovascular structures. I followed 6 options in a decision tree to fine tune the varus valgus and posterior slope orientation of the tibial component to restore the patient's pre arthritic tibial joint line and limb alignment. First, I adjusted the varus-valgus orientation of the proximal tibia resection working in 1 degree to 2 degree increments until there was negligible medial and lateral lift off of the distal femoral and proximal tibial resection from the spacer block during a varus valgus laxity assessment in extension. I selected the largest anatomic shape trial tibial base plate that fit within the cortical boundary of the proximal tibial resection. The base plate was best fit parallel to the cortical boundary which set the Internal-external orientation of the anterior to posterior and medial to lateral positions. The best fit method set the AP axis of the tibial base plate and insert parallel to the flexion extension plane of the pre arthritic knee. I pinned the trial tibial base plate, prepared the cruciate slot, and fixed the base plate to the tibia with the cruciate stem. I inserted the trial femoral component. The knee was placed in full extension. Varus valgus laxity is of the knee with trial components were assessed. When asymmetric laxity was observed a 1-2 degree varus or valgus recut guide was used to fine tune the tibial resection until the laxity was 1 degree or less in full extension like the [place] knee. The following steps determined the optimal insert thickness within +/-1 mm. First I inserted an insert goniometer that matched the thickness of the spacer block. I reduced the patella and then with the knee in maximum extension, I verified the knee hyperextended a few degrees and had negligible varus valgus laxity, like the pre arthritic knee. Next, I measured the external tibial orientation which was the angle the insert goniometer intersected the sagittal line on the medial condyle of the femoral trial component. Then with the knee in 15-30 degrees flexion I verified a 3-4 mm gap in the lateral compartment and no gap in the medial compartment during a 2nd varus valgus laxity test. Next, I placed the knee in 90? of flexion and the foot resting on the operating table and measured the internal tibial orientation. I repeated the steps until I identified the insert thickness that provided the highest external tibia orientation in extension and the highest internal tibial orientation at 90? flexion without anterior lift-off of the insert from the tibial base plate. The insert with this thickness was implanted. I applied a posterior drawer test with the tibia distracted by gravity and verified no posterior subluxation of the tibia relative to the femur. The thickness of the [place] patella was measured with a caliper. The lateral patellar facet was resected using the oscillating saw. The patella remained centered on the trochlea and tracked well throughout the entire arc of flexion and extension. I used pulse lavage to clean the bony surfaces of debris and dried bone. I cemented the tibial, femoral, and patellar components using 1 bag of methylmethacrylate with Gentamycin, then rechecked the stability at full extension, 15-30 degrees, and 90? flexion and verified shinto of the entire arc of motion of the knee. The circulating nurse confirmed the sponge and needle counts were correct. I used pulse lavage to rinse the joint and wound. The extensor mechanism was closed with interrupted #1 Vicryl suture and #1 running Stratafix suture. The subcutaneous layer was closed with interrupted #1 Vicryl suture followed by 2-0 Stratafix and 3-0 Stratafix. Steri-Strips placed on the skin. Silver impregnated occlusive dressing applied to the wound. A light gauze wrap and Alberto bandage were placed. The patient was transferred to the recovery room in stable condition. There were no complications. Implants Medacta GMK spheriKA Femoral component SpheriKA size 3, tibial component size 3, vitamin-E flex insert, thickness 11mm. Estimated Blood Loss 150 Drains No Pathology None sent Complications No immediate complications Condition Stable Disposition PACU [facility] Billing Surgery - Charge Forward: Surgery Billing
[2024-12-10] MEDS: SODIUM CHLORIDE 0.9% IV 37.7 ML, MORPHINE SULFATE INJ (*CRX) 2 MG, ROPivacaine HCL 1% 2... INFILTRATE (13:45)
[2024-12-10] MEDS: TRANEXAMIC ACID 1,000 MG/10 ML AMPUL 1000 MG IV PUSH (14:50)
[2024-12-10] MEDS: LACTATED RINGERS 1,000 ML 30 ML IV CONT ×2 (15:09)
[2024-12-10] MEDS: fentaNYL CITRATE INJ (*CRX) 100 MCG/2 ML VIAL 25 MCG IV PUSH ×8 (15:13→15:45)
[2024-12-10] MEDS: HYDROmorphone HCL INJ (*CRX) 1 MG/ML SYR 0.5 MG IV PUSH ×2 (15:59→16:05)
--- NOTE | 2024-12-10 16:35 | ADMGEN ---
This patient, Carmenza Fischer, was admitted to [facility] Surg Room 327-01. Patient/family oriented to hospital policies and general routines including ID bracelet, bed and alarms, visiting hours, pain management, procedures, bathroom and other care routines, personal items, smoking policy, room service/diet, and visiting hours. Information on how to activate the Rapid Response Team has been discussed. Patient/Family are encouraged to report perceived risks to care and to ask questions if they do not understand what they are told or what they should do.
[2024-12-10] MEDS: ASPIRIN 81 MG ENTERIC TABLET PO (17:28)
[2024-12-10] MEDS: METOPROLOL SUCCINATE EXT REL 25 MG TABCR BY MOUTH (17:28)
[2024-12-10] MEDS: MELOXICAM 7.5 MG TABLET PO (17:28)
[2024-12-10] MEDS: ceFAZolin 2 GM/D5W 50 ML 2 GM/50 ML BAG IVPB (21:00)
--- NOTE | 2024-12-10 22:53 | PC.NURSE ---
patient up to void at [facility] at this time, also sitting up in chair. patient tolerated ambulating very well with sba and walker, denies pain. patient oxygen removed, sats wnl.
[2024-12-10] MEDS: ONDANSETRON INJ 4 MG/2 ML VIAL IV PUSH (23:43)
[2024-12-11 02:06] VITALS: BP 123/44; PULSE 82; RESP 17; TEMP 36.6; O2SAT 94
[2024-12-11] MEDS: ceFAZolin 2 GM/D5W 50 ML 2 GM/50 ML BAG IVPB (04:10)
[2024-12-11 05:45] VITALS: BP 103/43; PULSE 77; RESP 14; TEMP 36.3; O2SAT 91
[2024-12-11 06:27] LABS: Hematocrit 33.3 % (37.0-47.0); Hemoglobin 10.5 g/dL (12.0-15.0); Immature Granulocyte Percent A 0.6 % (0-0.5); Lymphocytes Absolute Auto 0.96 K/mm3 (0.9-3.2); Mean Corpuscular HGB Conc 31.5 g/dl (32-36); Mean Corpuscular Hemoglobin 31.1 pg (26-34); Mean Corpuscular Volume 98.5 fl (80-100); Nucleated Red Blood Cells Absolute Auto 0.000 K/mm3 (0.0-0.012); Nucleated Red Blood Cells Perc 0.0 % (0.0-0.2); Platelet Count Result 212 k/mm3 (150-375); Red Blood Count 3.38 M/mm3 (4.2-5.4); White Blood Count 8.3 K/mm3 (4.5-10.0)
[2024-12-11 06:50] LABS: Anion Gap 5 mmol/L (4-12); Blood Urea Nitrogen 24 mg/dL (7-17); Calcium 8.6 mg/dL (8.4-10.2); Carbon Dioxide 25 mmol/L (22-30); Chloride 106 mmol/L (98-107); Estimated Glomerular Filt Rate 49; Glucose 118 mg/dL (65-110); Potassium 4.3 mmol/L (3.4-5.0); Sodium 136 mmol/L (137-145)
[2024-12-11 07:47] VITALS: BP 120/50; PULSE 94; RESP 17; TEMP 36.2; O2SAT 93
[2024-12-11 08:00] VITALS: PULSE 94; RESP 17; O2SAT 93
[2024-12-11] MEDS: oxyCODONE/ACETAMINOPHEN (*CRX) 10-325 MG TABLET 1 TAB PO (08:55)
[2024-12-11] MEDS: MELOXICAM 7.5 MG TABLET PO (08:56)
[2024-12-11] MEDS: CHOLECALCIFEROL (VITAMIN D3) 25 MCG (1,000 UNITS) TABLET 75 MCG PO (08:56)
[2024-12-11] MEDS: SENNA/DOCUSATE SODIUM TABLET 2 TAB PO (08:56)
[2024-12-11] MEDS: PANTOPRAZOLE 40 MG TABLET PO (08:56)
[2024-12-11] MEDS: ATORVASTATIN 20 MG TABLET BY MOUTH (08:56)
[2024-12-11] MEDS: ASPIRIN 81 MG ENTERIC TABLET PO (08:56)
[2024-12-11 11:55] VITALS: BP 134/53; PULSE 75; RESP 16; TEMP 36.2; O2SAT 95
== END 2024-12-11 15:11 | disposition home or self-care (01) ==
LOC: ANHSURGERY 15:16 → ANH3MEDSUR 16:27
PROVIDERS: PCP Family Medicine; Visit Provider Orthopaedic Surgery
PROC: (CPT 27447; principal; 2024-12-10 12:30)
DX: M17.11 Unilateral primary osteoarthritis, right knee (principal); M25.761 Osteophyte, right knee; I10 Essential (primary) hypertension; I49.9 Cardiac arrhythmia, unspecified; E78.2 Mixed hyperlipidemia; R73.03 Prediabetes; K74.3 Primary biliary cirrhosis; D64.9 Anemia, unspecified; I49.1 Atrial premature depolarization; F32.9 Major depressive disorder, single episode, unspecified; G89.29 Other chronic pain; E66.9 Obesity, unspecified; Z68.38 Body mass index [BMI] 38.0-38.9, adult; Z79.1 Long term (current) use of non-steroidal anti-inflammatories (NSAID); Z98.890 Other specified postprocedural states; Z96.652 Presence of left artificial knee joint; Z87.19 Personal history of other diseases of the digestive system; Z80.41 Family history of malignant neoplasm of ovary; Z82.49 Family history of ischemic heart disease and other diseases of the circulatory system
CPT/HCPCS: 27447; 36415; 73560; 80048; 85025; 86850; 86900; 86901; 97110; 97116; 97161; 97165; 97530; J0690; A9270; C1713; C1776; J0166; J1171; J1885; J2270; J2405; J2795; J3010; J7120; J7512

== ENCOUNTER 2025-01-26 11:11 | Outpatient (CLI) | payer MEDICARE, SELFPAY ==
--- NOTE | ~2025-01-26 | XR_ITS ---
EXAMINATION: XR chest 2V, 01/26/2025 11:16 CDT HISTORY: R06.2 - Wheezing COMPARISON: No comparisons available. Technique: 2 views obtained. Findings: The lungs are clear, no effusion. No pneumothorax. Heart is normal size. Mediastinal and hilar contours are within normal limits. Bony thorax no acute abnormality. Impression: No acute cardiopulmonary abnormality. Reviewed, dictated and finalized at location A. Impression: No acute cardiopulmonary abnormality.
== END 2025-01-26 11:12 | disposition home or self-care (01) ==
LOC: MICIMG 11:12
PROVIDERS: PCP Family Medicine; Visit Provider Nurse Practitioner Adult Health
DX: R06.2 Wheezing (principal); R05.8 Other specified cough
CPT/HCPCS: 71046

== ENCOUNTER 2025-03-02 12:41 | Outpatient (CLI) | payer MEDICARE, SELFPAY ==
--- NOTE | ~2025-03-02 | CT_ITS ---
Exam: CT chest without contrast Clinical History: [Wheezing ] Comparison: [ None available] Technique: Multiple axial CT images of the chest without with IV contrast. Sagittal and coronal reformatted images were obtained. FINDINGS: Lungs and pleura: [ Tracheal bronchial tree is patent. No pneumothorax. No pleural effusion. No pulmonary mass. Small to moderate-sized groundglass and patchy opacities in the lower lobes Mediastinum and pulmonary spencer: [ No mass or adenopathy.] Axillary/intramammary and supraclavicular: [ No mass or adenopathy.] Heart and great vessels: [ Normal heart size.[ [ No pericardial effusion.] [ No aneurysm.] Indeterminant 3.8 x 3.5 x 3.0 cm oval masslike structure abutting the right posterior pericardium. Chest Wall: [ Unremarkable.] Upper Abdomen: Small amount of sludge or tiny gallstones in the gallbladder. Osseous structures: [ No acute fracture or destructive lesion.] [ Multilevel degenerative change in the visualized spine.] Additional findings: [ None of significance.] IMPRESSION: 1. Indeterminant 3.8 x 3.5 x 3.0 cm oval masslike structure abutting the right posterior pericardium. An aneurysm is possible. Other etiologies are possible. An MRI of the chest is recommended for further assessment. Consider an echo for further assessment. 2. Small to moderate-sized groundglass and patchy opacities in the lower lobes. The findings are presumably due to an inflammatory or infectious process. Other etiologies are possible. Recommend follow-up to resolution. 3. Small amount of sludge or tiny gallstones in the gallbladder. Reviewed, dictated and finalized at location Q. IMPRESSION: 1. Indeterminant 3.8 x 3.5 x 3.0 cm oval masslike structure abutting the right posterior pericardium. An aneurysm is possible. Other etiologies are possible. An MRI of the chest is recommended for further assessment. Consider an echo for further assessment. 2. Small to moderate-sized groundglass and patchy opacities in the lower lobes. The findings are presumably due to an inflammatory or infectious process. Othe r etiologies are possible. Recommend follow-up to resolution. 3. Small amount of sludge or tiny gallstones in the gallbladder.
--- OUTSIDE RECORDS SUMMARY | 2025-03-02 15:22 | XMS_ITS | Clinical Summary ---
Author Organization [facility] [place] [address] Address [address] [place] [address] Care Team Providers Care Tableau Developer Name Role Phone Greg Smart MD Primary Care Provider [phone] Allergies No known active allergies Medications atorvastatin [...] on file Legal Sex Female 9:01 AM PC TECHNICIAN Gender Identity Not on file Sexual Orientation Not on file Obstetrics History Last Filed Vital Signs Vital Sign Reading Time Taken Comments Blood Pressure - - Pulse - - Temperature - - Respiratory Rate - - Oxygen Saturation - - Inhaled Oxygen Concentration - - Weight 86.2 kg (190 lb) 03/21/2022 12:22 PM PC TECHNICIAN Height 152.4 cm (5') 03/21/2022 12:22 PM PC TECHNICIAN Body Mass Index 37.11 03/21/2022 12:22 PM PC TECHNICIAN Plan of Treatment Health Maintenance Due Date Last Done Comments Depression Screening 1940 Fall Risk Assessment 1940 Osteoporosis Screening-Bone Density Scan 1940 DTaP/Tdap/Td Vaccine (1 - Tdap) 10/10/1950 Hepatitis B Screening 10/10/1957 Zoster Vaccine (1 of 2) 10/10/1989 Well Visit 65+ 10/10/2004 Pneumococcal vaccine 65+ (2 of 2 - PCV20 or PCV21) 01/09/2023 01/09/2022 Covid-19 Vaccine (5 - 2024-2 6 season) 2025 10/02/2021, 05/11/2021, 08/02/2020, Additional history exists Influenza Vaccine (#1) 2025 , 01/27/2020, 03/05/2019, Additional history exists Insurance [employer] MEDICARE GOLD [employer] MED[employer]ARE GOLD Care Teams Tableau Developer Relationship Specialty Start Date End Date Greg Smart MD PCP - General Family Medicine 08/06/18
--- OUTSIDE RECORDS SUMMARY | 2025-03-02 15:22 | XMS_ITS | Clinical Summary ---
Author Organization [facility] Address [address] [place] [id number] Care Team Providers Care Executive Sous Chef Name Role Phone Unavailable Primary Care Provider [...] COVID-19 Vaccine ( - 2023-2 5 season) 2025 Influenza Adult (#1) 2025 Hepatitis A Vaccines Aged Out No long er eligible based on patient's age to complete this topic Meningococcal B Vaccine Aged Out No l onger eligible based on patient's age to complete this topic Meningococcal Vaccine Aged Out No bessy isamar eligible based on patient's age to complete this topic RSV Immunizations Under 20 Months Aged Out No longer eligible based on patient's age to complete this topic
== END 2025-03-02 12:42 | disposition home or self-care (01) ==
PROVIDERS: PCP Family Medicine; Visit Provider Nurse Practitioner Adult Health
DX: I31.8 Other specified diseases of pericardium (principal); R93.2 Abnormal findings on diagnostic imaging of liver and biliary tract; R91.8 Other nonspecific abnormal finding of lung field; R06.02 Shortness of breath; R05.8 Other specified cough
CPT/HCPCS: 71250

== ENCOUNTER 2025-03-25 08:31 | Outpatient (CLI) | payer MEDICARE, SELFPAY ==
--- OUTSIDE RECORDS SUMMARY | 2025-03-25 08:42 | XMS_ITS | Clinical Summary ---
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 Gender Identity Not on file Sexual Orientation Not on file Last Filed Vital Signs Vital Sign Reading Time Taken Comments Blood Pressure - - Pulse - - Temperature - - Respiratory Rate - - Oxygen Saturation - - Inhaled Oxygen Concentration - - Weight 86.2 kg (190 lb) 03/21/2022 12:22 PM CHILD CARE WORKER Height 152.4 cm (5') 03/21/2022 12:22 PM CHILD CARE WORKER Body Mass Index 37.11 03/21/2022 12:22 PM CHILD CARE WORKER Plan of Treatment Not on file Insurance [employer] MEDICARE GOLD AET[employer] MEDICARE GOLD Care Teams Electric Motor Repairman Relationship Specialty Start Date End Date Greg Smart MD PCP - General Family Medicine 08/06/18
--- NOTE | 2025-03-25 08:44 | ECHO_ITS ---
Patient Info Name: Carmenza Fischer Age: 84 years : 1940 Gender: Female Ht: 60 in Wt: 187 lbs BSA: 1.94 m2 HR: 87 bpm BP: 137 / 71 mmHg Technical Quality: Good Exam Date: 03/25/2025 8:47 AM Patient Status: O Admit Date: 03/25/2025 Exam Type: CA echo doppler color flow Complete two-dimensional, color flow and Doppler transthoracic echocardiogram is performed. Methods Specialist Engineer: Roseline Barrientos Attending Provider: Nasreen Lynch RECEIVING COORDINATOR Summary 1. Complete two-dimensional, color flow and Doppler transthoracic echocardiogram is performed. 2. Left ventricular chamber dimension is normal. 3. Left ventricular systolic function is normal, estimated at 65-70. 4. The left ventricular diastolic function is grade I diastolic dysfunction. 5. E/e' 8 is minimally elevated. 6. There is trace tricuspid valve regurgitation. 7. Mild pulmonary hypertension, estimated pulmonary arterial systolic pressure is 40 mmHg. Left Ventricle E/e' 8 is minimally elevated. Left ventricular chamber dimension is normal. Left ventricular systolic function is normal, estimated at 65-70. The left ventricular diastolic function is grade I diastolic dysfunction. Right Ventricle Right ventricular chamber dimension is normal. Right ventricular systolic function is normal and with normal TAPSE 1.8 cm. Left Atria Left atrial chamber dimension is normal. Right Atria Right atrial chamber dimension is normal. Aortic Valve The aortic valve is trileaflet. There is no aortic valve stenosis. There is no aortic valve regurgitation. Pulmonic Valve There is no pulmonic regurgitation. Mitral Valve There is no mitral valve stenosis. There is no mitral valve regurgitation. Tricuspid Valve There is trace tricuspid valve regurgitation. Mild pulmonary hypertension, estimated pulmonary arterial systolic pressure is 40 mmHg. Pericardium/Pleural There is no pericardial effusion. Inferior Vena Cava Normal inferior vena cava with >50% collapse upon inspiration consistent with normal right atrial pressure, 5 mmHg. Aorta The aortic root size at the sinus of Valsalva is normal. Left Ventricular Outflow Tract Name Value Normal LVOT 2D LVOT Diameter 2.0 cm LVOT Doppler LVOT Peak Velocity 136 cm/s LVOT Peak Gradient 7 mmHg LVOT Mean Gradient 4 mmHg LVOT VTI 30 cm LVOT VTI/AV VTI Ratio 0.6 LVOT Stroke Volume 91 ml LVOT CO 7.9 l/min LVOT CI 4.1 l/min/m2 Pulmonic Valve Name Value Normal RVOT Doppler RVOT Peak Velocity 88 cm/s RVOT Peak Gradient 3 mmHg PV Doppler PV Peak Velocity 136 cm/s PV Peak Gradient 7 mmHg Mitral Valve Name Value Normal MV Diastolic Function MV E Peak Velocity 61 cm/s MV A Peak Velocity 87 cm/s MV E/A 0.7 MV Decel Time (PW) 284 ms MV Annular TDI MV E/e' (Septal) 8.9 MV E/e' (Lateral) 8.9 MV E/e' (Average) 8.9 Tricuspid Valve Name Value Normal TV Regurgitation Doppler TR Peak Velocity 294 cm/s TR Peak Gradient 35 mmHg Estimated PAP/RSVP RA Pressure 5 mmHg <=5 PA Systolic Pressure 40 mmHg <36 RV Systolic Pressure 40 mmHg <36 Aortic Valve Name Value Normal AV Doppler AV Peak Velocity 244 cm/s AV Peak Gradient 24 mmHg AV Mean Gradient 13 mmHg AV VTI 47 cm AV Area (Cont Eq VTI) 1.9 cm2 >=3.0 AV Area (Cont Eq Mauricio) 1.7 cm2 AV DI (Mauricio) 0.56 AV Regurgitation 2D LVOT Area 3.0 cm2 Ventricles Name Value Normal LV Dimensions 2D/MM IVS Diastolic Thickness (2D) 0.9 cm 0.6-1.0 LVID Diastole (2D) 3.6 cm 3.8-5.2 LVIW Diastolic Thickness (2D) 1.0 cm 0.6-0.9 LVID Systole (2D) 2.3 cm 2.2-3.5 LVOT Diameter 2.0 cm LV Mass (2D Cubed) 97.86 g 67.00-162.00 LV Mass Index (2D Cubed) 50 g/m2 43-95 Relative Wall Thickness (2D) 0.56 <=0.42 LV Fractional Shortening/Ejection Fraction 2D/MM LV Fractional Shortening (2D) 37 % 27-45 LV EF (2D Teichholz) 68 % LV Diastolic Volume (4C MOD) 82 ml LV EF (4C MOD) 63 % LV Diastolic Volume (2C MOD) 77 ml LV EF (2C MOD) 64 % LV Diastolic Volume (BP MOD) 80 ml 46-106 LV Diastolic Volume Index (BP MOD) 41 ml/m2 29-61 LV Systolic Volume (BP MOD) 29 ml 14-42 LV Systolic Volume Index (BP MOD) 15 ml/m2 8-24 LV EF (BP MOD) 64 % 54-74 LV Diastolic Length (4C) 7.6 cm LV Systolic Length (4C) 6.4 cm LV Stroke Volume (4C MOD) 52 ml Atria Name Value Normal LA Dimensions LA Volume (4C A-L) 46 ml LA Volume (BP A-L) 44 ml RA Dimensions RA Systolic Major [place] Length (4C) 4.7 cm 2.2-2.8 RA Area (4C) 12.6 cm2 <=18.0 Report Signatures
== END 2025-03-25 08:32 | disposition home or self-care (01) ==
PROVIDERS: PCP Family Medicine; Visit Provider Nurse Practitioner Adult Health
DX: I10 Essential (primary) hypertension (principal); I27.20 Pulmonary hypertension, unspecified
CPT/HCPCS: 93306